=== PATIENT | female | born 1950 | race Caucasian/White ===

== ENCOUNTER 2022-10-31 05:17 | Day surgery (SDC) | payer MEDICARE, OTHER ==
[2022-10-20 11:10] LABS: BASOPHILS % (AUTO) 0.3 % (0-1); EOSINOPHILS % (AUTO) 0.5 % (0-6); LYMPHOCYTES # (AUTO) 1.9 X10'3 (1.1-4.8); LYMPHOCYTES % (AUTO) 22.2 % (21-51); MEAN CORPUSCULAR HEMOGLOBIN 33.2 PG (27.0-31.0); MEAN CORPUSCULAR HGB CONC 34.7 g/dL (33.0-36.5); MEAN CORPUSCULAR VOLUME 95.9 FL (78-98); MEAN PLATELET VOLUME 9.1 FL (7.4-10.4); MONOCYTES # (AUTO) 0.6 X10'3 (0-0.9); MONOCYTES % (AUTO) 6.9 % (2-12); NEUTROPHILS # (AUTO) 5.9 X10'3 (1.8-7.7); NEUTROPHILS % (AUTO) 70.1 % (42-75); PRE OP HEMATOCRIT 42.4 % (35.0-45.0); PRE OP HEMOGLOBIN 14.7 g/dL (12.0-16.0); PRE OP PLATELET COUNT 194 X10'3 (140-440); RED BLOOD COUNT 4.42 X10'6 (4.20-5.60); RED CELL DISTRIBUTION WIDTH 13.3 % (11.5-14.5)
[2022-10-20 11:16] LABS: CLARITY,URINE CLOUDY (Clear); COLOR,URINE YELLOW (Yellow); GLUCOSE, URINE NEGATIVE (Neg); KETONES,URINE NEGATIVE (Neg); LEUKOCYTE ESTERASE ,URINE NEGATIVE (Neg); NITRITES, URINE NEGATIVE (Neg); OCCULT BLOOD,URINE SMALL (Neg); PH,URINE 7.5 (4.8-8.0); PROTEIN,URINE NEGATIVE (Neg); UROBILINOGEN,URINE 0.2 E.U/dL (0.2-1.0)
[2022-10-20 11:18] LABS: UA COLLECTION TYPE VOIDED
[2022-10-20 11:27] LABS: SQUAMOUS EPITHELIAL CELL,UR MODERATE /LPF (FEW); TRANSITIONAL EPI CELLS,URINE MODERATE /HPF
[2022-10-20 11:28] LABS: MUCUS STRANDS FEW /LPF (Neg)
[2022-10-20 11:29] LABS: AMORPHOUS PHOSPHATES 2+; BACTERIA,URINE FEW /HPF (Neg); WBC,URINE 0-4 /HPF (0-4)
[2022-10-20 11:32] LABS: ALBUMIN 4.1 G/DL (3.4-5.0); ALBUMIN/GLOBULIN RATIO 1.3 (1.1-1.5); ALKALINE PHOSPHATASE 62 IU/L (46-116); BLOOD UREA NITROGEN 18 MG/DL (7-18); BUN/CREATININE RATIO 19.6 (6.6-38.0); CALCIUM 9.1 MG/DL (8.5-10.1); CHLORIDE 105 MMOL/L (99-107); CREATININE 0.92 MG/DL (0.40-0.90); PRE OP ALT 21 U/L (30-65); PRE OP ANION GAP 8 (8-16); PRE OP AST 15 U/L (10-37); PRE OP BILIRUB, TOTAL 0.7 MG/DL (0.0-1.0); PRE OP GLUCOSE 91 MG/DL (70-104); PRE OP POTASSIUM 3.8 MMOL/L (3.4-5.1); PRE OP SODIUM 142 MMOL/L (135-145); TOTAL CARBON DIOXIDE 29.1 MMOL/L (24-32); TOTAL PROTEIN 7.2 G/DL (6.4-8.2); eGFR 60 ML/MIN
[~2022-10-31] VITALS: Ht 162.6 cm; Wt 57.6 kg
[2022-10-31] VITALS (20 sets, daily range): BP systolic 96–138; BP diastolic 53–76
[~2022-10-31 05:17] MED LIST: AMLO5TAB16 PO; ATOR10TA70 PO; CALC-1074 PO; CHOL100046 PO; DENO60DI SUBCUT; ESCI20TA39 PO; ringers solution, lacted 1,000 ML IV SCH
[2022-10-31] MEDS ORDERED: ceFAZolin inj. 2,000 MG in dextrose 5%-water 100 ML IV ONE (05:30)
[2022-10-31] MEDS ORDERED: famotidine 20mg tablet PO ONE (05:30)
[2022-10-31] MEDS ORDERED: bacitracin 15gm ointment TP ONE ×2 (07:07→08:38)
[2022-10-31] MEDS ORDERED: BUPIVAcaine 0.5% inj/PF 0 ML ONE (07:07)
[2022-10-31] MEDS ORDERED: midazolam 1 mg/ML 2ml injection ONE (07:20)
[2022-10-31] MEDS ORDERED: fentaNYL /PF 50mcg/ml 5ml ampule ONE (07:20)
[2022-10-31] MEDS ORDERED: sevoflurane 250ml liquid IH ONE (07:25)
[2022-10-31] MEDS ORDERED: ketamine 50mg/5ml syringe ONE (08:19)
[2022-10-31] MEDS ORDERED: ringers solution, lacted 1,000 ML IV SCH (08:50)
[2022-10-31] MEDS ORDERED: ROPIVAcaine 0.2% (10 MG/5 ML) BOLUS INJECTION POPLITEAL PRN (08:50)
[2022-10-31] MEDS ORDERED: ROPIVAcaine 0.2%/PF PUMP/bolus 545 ML POPLITEAL SCH (08:50)
[2022-10-31] MEDS ORDERED: HYDROmorphone/PF 0.2 MG/ML SYRINGE IV PRN ×2 (08:50)
[2022-10-31] MEDS ORDERED: morphine 2 MG/ML inj. syringe IV PRN (08:50)
[2022-10-31] MEDS ORDERED: ondansetron/PF 4mg/2ml inj IV PRN (08:50)
[2022-10-31] MEDS ORDERED: neostigmine methylsulfate 1 MG/ML 10ml vial ONE (09:20)
[2022-10-31] MEDS ORDERED: glycopyrrolate 0.2mg/ml inj ONE (09:20)
[2022-10-31] MEDS ORDERED: rocuronium 10mg/ml inj IV ONE (09:20)
[2022-10-31] MEDS ORDERED: propofol inj 20 ML IV ONE (09:20)
[2022-10-31] MEDS ORDERED: ondansetron/PF 4mg/2ml inj ONE (09:20)
[2022-10-31] MEDS ORDERED: acetaminophen 1,000mg/100ml IV 100 ML IV ONE (09:20)
[2022-10-31] MEDS ORDERED: dexamethasone sod phosphate 4mg/ml inj. ONE (09:20)
[2022-10-31] MEDS ORDERED: ePHEDrine 50MG/ML INJ. ONE (10:08)
--- NOTE | 2022-10-31 11:22 | NUR ---
Received from OR via [facility], accompanied by Anesthesiologist DR RUSHING and report given by Anesthesiologist AND MANAGER DELIVERY. PT DROWSY, NO S/S OF DISTRESS/DISCOMFORT. LEFT FOOT/LEG FROM TIP OF TOES TO BELOW KNEE W/ILSA WRAP COVERING INCCISION/DRSG/SPLINT CDI. 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 Addendum: 10/31/22 at 1138 by Fouzia Crandall RN Amended: Links added.
[2022-10-31] MEDS: morphine 4 MG/ML inj SYRINge IV PRN ×2 (11:53→12:03)
--- NOTE | 2022-10-31 15:32 | NUR ---
PT UP W/ASSIST AND IS ABLE TO PIVOT TO W/C AND FROM W/C TO TOILET. PT TOLERATED WELL. VOIDED. PT BACK TO W/C. PTS IN, D/C INSTRUCTIONS GIVEN ALONG WITH BOOKLET INFORMATION ON ON-Q INSTRUCTIONS AND NERVE BLOCK. PT HAS WALKER, CRUTCHES, AND KNEE SCOOTER AT HOME AND HAS BEEN PRACTICING USE OF EACH. PT D/CD TO HOME VIA W/C TO PRIVATE VEHICLE W/O INCIDENT. Addendum: 10/31/22 at 1611 by Fouzia Crandall RN Amended: Links added.
== END 2022-10-31 15:32 | disposition home or self-care (01) ==
LOC: PAS 05:17
PROVIDERS: ATTEND Podiatrist Foot & Ankle Surgery
DX: M19.072 Primary osteoarthritis, left ankle and foot (principal); M21.42 Flat foot [pes planus] (acquired), left foot; M84.364A Stress fracture, left fibula, initial encounter for fracture; I10 Essential (primary) hypertension; M81.0 Age-related osteoporosis without current pathological fracture; F32.A Depression, unspecified; F17.210 Nicotine dependence, cigarettes, uncomplicated; G89.18 Other acute postprocedural pain; Z79.899 Other long term (current) drug therapy; Z88.8 Allergy status to other drugs, medicaments and biological substances; Z98.890 Other specified postprocedural states; Z90.710 Acquired absence of both cervix and uterus; Z98.41 Cataract extraction status, right eye; Z98.42 Cataract extraction status, left eye; Z82.49 Family history of ischemic heart disease and other diseases of the circulatory system; Z82.5 Family history of asthma and other chronic lower respiratory diseases; X58.XXXA Exposure to other specified factors, initial encounter; Y93.89 Activity, other specified; Y92.89 Other specified places as the place of occurrence of the external cause; Y99.8 Other external cause status
CPT/HCPCS: 20902; 28715; 28740; 36415; 64446; 64447; 73630; 76000; 80053; 81001; 82948; 85025; 93005; A6223; C1713; C1716; C1762; J0131; J0690; J1100; J1170; J2250; J2270; J2405; J2704; J2710; J2795; J3010; J3490; J7030; J7060; J7120; Z7506; Z7508; Z7512; A4215; A4618; A6449; A7000; S0020